=== PATIENT | female | born 1955 | race Caucasian/White ===

== ENCOUNTER → 2018-05-20 | Outpatient (CLI) | payer OTHER | LOC: LAB 13:12 → LAB SHORT 13:12 | PROVIDERS: Nurse Practitioner Family | DX: Z00.00 Encounter for general adult medical examination without abnormal findings (principal) | CPT/HCPCS: G0123 ==

== ENCOUNTER → 2018-10-31 | Outpatient (CLI) | payer OTHER ==
[2018-10-31 18:41] LABS: Bilirubin, Urine Neg (Neg); Blood, Urine Neg (Neg); Glucose Qualitative, Urine Neg (Neg); Ketones, Urine Neg (Neg); Leukocyte Esterase, Urine 1+ (Neg); Nitrite, Urine Neg (Neg); Protein, Urine Neg (Neg); Specific Gravity, Urine 1.005 (1.003-1.022); Urobilinogen, Urine NORM (Normal)
[2018-10-31 19:00] LABS: Appearance, Urine Clear (Clear); Bacteria Rare /hpf; Color, Urine Pale Yellow (P-Yellow); Red Blood Cells, Urine Rare /hpf (0-2); Squamous Epithelial Cells Rare /hpf (Few); White Blood Cells, Urine Rare /hpf (0-5)
== END | disposition home or self-care (01) ==
LOC: LAB 18:11 → LAB SHORT 18:11
PROVIDERS: Nurse Practitioner Family
DX: R35.0 Frequency of micturition (principal)
CPT/HCPCS: 81001; 87086

== ENCOUNTER 2020-05-14 08:52 | Emergency (ER) | payer OTHER ==
[~2020-05-14] VITALS: Ht 172.7 cm; Wt 64.0 kg
[2020-05-14] MEDS ORDERED: Bactrim Ds Tab1 EACH PO (09:42)
== END 2020-05-14 09:54 | disposition home or self-care (01) ==
LOC: ER 08:52
DX: L03.317 Cellulitis of buttock (principal)
CPT/HCPCS: 99282

== ENCOUNTER → 2020-10-25 | Outpatient (CLI) | payer OTHER ==
[~2020-10-25] MED LIST: Bactrim Ds Tab1 EACH PO
[2020-10-25 11:57] LABS: Creatinine Urine 28.6 mg/dL (27.00-270.00)
[2020-10-25 12:03] LABS: Calcium, Urine <5.0 mg/dL (< 17.5); Calcium, Urine Calculation Unable to Calculate mg/24hrs (42.0-353.0)
== END | disposition home or self-care (01) ==
LOC: PLD 07:00 → LAB SHORT 07:00 → LAB FUT 07-11 12:45
PROVIDERS: Internal Medicine
DX: N18.31 Chronic kidney disease, stage 3a (principal)
CPT/HCPCS: 81050; 82340; 82570

== ENCOUNTER → 2020-11-07 | Outpatient (CLI) | payer OTHER ==
[2020-11-08 16:10] LABS: HPV 16 Negative (Negative); HPV 18 Negative (Negative); HPV OTHER HR TYPES Negative (Negative)
== END | disposition home or self-care (01) ==
LOC: LAB SHORT 16:05 → LAB 16:05
PROVIDERS: Student in an Organized Health Care Education/Training Program
DX: Z01.419 Encounter for gynecological examination (general) (routine) without abnormal findings (principal)
CPT/HCPCS: 87624; G0123

== ENCOUNTER → 2024-08-04 | Outpatient (CLI) | payer MEDICARE ==
[~2024-08-04] MED LIST changes: +BREXPIPRAZOLE PO; +LAMO100 PO; +LEVOTHYROXINE100 M10 PO; +LITH300C PO
== END | disposition home or self-care (01) ==
LOC: LAB 07:28 → LAB SHORT 07:28 → PLD 07:28
DX: L57.0 Actinic keratosis (principal)
CPT/HCPCS: 88305